=== PATIENT | female | born 1990 | race Caucasian/White ===

== ENCOUNTER 2023-10-10 08:40 | Day surgery (SDC) | payer OTHER ==
[2023-10-07 09:27] LABS: Anion Gap 9.2 mEq/L (5.0-15.0); Potassium 4.2 mEq/L (3.5-5.1)
--- NOTE | 2023-10-07 14:04 | EKG ---
Test Date: 2023-10-07 Test Time: 08:47:03 Professional Architect: RIKI MEASUREMENT RESULTS: Intervals: Rate: 106 AR: 126 QRSD: 60 QT: 344 QTc: 456 Mitchell: P: 71 AR: 126 QRS: 73 T: 42 INTERPRETIVE STATEMENTS: Sinus tachycardia Nonspecific ST and T wave abnormality Abnormal ECG No previous ECG available for comparison Electronically Signed On 10-07-23 14:04:25 CDT by George Harding
[2023-10-10] MEDS: Ringers Lactate 1,000 ML IV ONE (09:18)
[2023-10-10 10:08] LABS: Urine Specific Gravity/Preg 1.025 (1.005-1.030)
[2023-10-10] MEDS ORDERED: MIDAZOLAM HCL 2 MG/2 ML INJ ONE (11:20)
[2023-10-10] MEDS ORDERED: LIDOCAINE 1% MPF 5 ML VIAL ONE (11:23)
[2023-10-10] MEDS ORDERED: propofoL 200 MG/20 ML VIAL IV ONE (11:23)
[2023-10-10] MEDS ORDERED: FENTANYL CITR 100 MCG/2 ML ONE (11:23)
[2023-10-10] MEDS: CEFAZOLIN SODIUM 1 GM/VIAL ONE (11:25)
[2023-10-10] MEDS ORDERED: dexAMETHasone 4 MG/ML VIAL ONE (11:27)
[2023-10-10] MEDS ORDERED: ONDANSETRON 4 MG/2 ML VIAL ONE (11:27)
[2023-10-10] MEDS ORDERED: KETOROLAC 30 MG/ML INJ ONE (11:27)
[2023-10-10] MEDS: BUPIVACAINE 0.25% PF 30 ML VIAL ONE (11:47)
[2023-10-10] MEDS: METHYLENE BLUE 1% 10 ML VIAL ONE (11:50)
--- NOTE | 2023-10-10 12:22 | P.OP ---
Preoperative diagnosis: Pilonidal Cyst with Sinus Postoperative diagnosis: Pilonidal Cyst with Sinus Primary procedure: Wide Local Excision of Pilonidal Cyst with Sinus Anesthesia: GETA + Local Estimated blood loss: <10cc Specimen: Debridement Tissue Findings: 5cm x 4cm x 4cm to fascia over sacrum Complications: None Transferred to: Recovery Room Condition: Good
[2023-10-10] MEDS: MEPERIDINE HCL 25 MG/ML SYR ONE (12:25)
--- NOTE | 2023-10-10 12:58 | OP ---
Date of Procedure: 10/10/2023 Surgeon: Jesus Leija MD, Preoperative Diagnosis: Pilonidal cyst with sinus. Postoperative Diagnosis: Pilonidal cyst with sinus. Procedure Performed: Wide local excision of pilonidal cyst with sinus. Anesthesia: General endotracheal plus local with 0.25% Marcaine. Estimated Blood Loss: 2 cc. Specimen: Debridement of tissue. Findings: Approximately 5 cm x 4 cm x 4 cm pilonidal cyst with small sinus tract extending towards t he perianal region along the corina cleft extending to the fascia overlying the sacrum. Complications: None. Implants: and Nephew Rosser particulate 500 cc porcine graft tissue. Disposition: The patient transferred to recovery room in good condition. Procedure In Detail: After informed consent was obtained, patient was brought to the operating room, prepped and draped in the usual sterile fashion after adequate anesthesia was achieved. I injected an area of the corina cleft where a small opening was appreciated with methylene blue. I also followe d this up with injection of 0.25% Marcaine to the same cavity and massaged the area to interrogate fo r possible sinus tracts. At this point, some blue was emanating from the distal aspect approximately 1.5 cm away from the corina cleft. I then made an elliptical incision down to subcutaneous tissue us ing a 15 blade. I used electrocautery to circumferentially dissect down the hole, pilonidal cyst dis ease tissue including the tract and sinus tract using electrocautery. I then removed this tissue, se nt it off for pathologic examination. The cavity extended all the way to the fascia along the sacrum , but did not include the sacral tissue or the fascia directly. It simply abutted the area. After a ll infected tissue was removed, the area was copiously irrigated, cleansed thoroughly and hemostasis was easily achieved with electrocautery. The area was cleansed once again. I then placed approximat magda 500 cc of Rosser hydrated porcine graft product which was mixed in a particular slurry type fashio n, sprayed into the bed and then packed with sterile damp saline gauze and a sterile dressing was daja claudio over top. The patient tolerated the procedure without incident or complication, transferred to P ACU in good condition. All counts were correct at the end of the case. TK/JAYDEL Voice ID: [id number] Report ID: [id number]
[2023-10-10 14:27] VITALS: BP 120/66; TEMP 98.7; O2SAT 100
== END 2023-10-10 13:30 | disposition home or self-care (01) ==
LOC: OR 08:40 → EDSEX 15:00
PROVIDERS: ATTEND Surgery
PROC: 0HR8XK3 Replacement of Buttock Skin with Nonautologous Tissue Substitute, Full Thickness, External Approach (ICD-10-PCS; 2023-10-10)
PROC: 0JB90ZZ Excision of Buttock Subcutaneous Tissue and Fascia, Open Approach (ICD-10-PCS; principal; 2023-10-10 11:15)
DX: L05.91 Pilonidal cyst without abscess (principal)
CPT/HCPCS: 11770; 93005; 80048; 36415; 81025; 88304; 15271; J2704; J1100; J2001; J2250; J3010; J2175; J2405; J7120; J0690